=== PATIENT | female | born 1930 | race Caucasian/White ===

== ENCOUNTER 2016-11-20 22:42 | Inpatient (IN) | payer OTHER, BC ==
[~2016-11-20] VITALS: Ht 157.5 cm; Wt 105.8 kg
[~2016-11-20 22:42] MED LIST: ADVIL,NUPRIN,M200 MG PO; ALLOPURINOL100 MG PO; AMLODIPINE BESYL5 MG PO; ASPIRIN81 M1 PO; ASPIRIN81 M2 PO; ATENOLOL50 M1 PO; ATENOLOL50 MG PO; CALCIUM; CALCIUM 500 +1 EACH PO; CALCIUM 600 WI1 EAC2 PO; CALTRATE 6001 TABLE1 PO; CETIRIZINE HCL10 M1 PO; CETIRIZINE HCL10 M2 PO; Cipro PO; DAILY VITAMIN1 EAC8 PO; DIOVAN HCT 11 TABLE1 PO; ESTRACE42.5 GM VG; FIBER; FLAGYL500 MG PO; GLIMEPIRIDE1 MG PO; GLIPIZIDE XL10 MG PO; GLUCOPHAGE500 MG PO; KEFLEX500 MG PO; LASIX20 MG PO; LEVAQUIN500 MG PO; LEVOTHYROXINE75 MCG PO; LISINOPRIL40 MG PO; LISINOPRIL5 MG PO; LO-DOSE ASPIRIN81 M1 PO; LORAZEPAM0.5 MG PO; MEDROL DOSEPAK4 MG PO; MULTIVITAMIN1 EAC1 PO; MULTIVITAMIN1 EAC2 PO; NORVASC10 MG PO; PRAVACHOL20 MG PO; PRAVASTATIN SOD10 MG PO; PROAIR HFA8.5 GM IH; PULMICORT FLE180 MCG IH; SPIRONOLACTONE25 MG PO; SYNTHROID50 MCG PO; SYNTHROID75 MCG PO; TRIAMTERENE-HC1 EACH PO; VITAMIN D; ZOFRAN ODT4 MG PO; ZYRTEC10 M2 PO
[2016-11-20 23:03] LABS: ADD MIUA? YES; BILIRUBIN NEGATIVE; BLOOD TRACE; COLOR YELLOW ((YELLOW)); GLUCOSE (STRIP) NEGATIVE; KETONES NEGATIVE; LEUKOCYTES NEGATIVE; NITRITE NEGATIVE; PH, URINE 5.5 (5-8); PROTEIN (STRIP) 100; SPECIFIC GRAVITY 1.012 (1.000-1.030); UROBILINOGEN 0.2 MG/DL (0.2-1.0)
[2016-11-20 23:08] LABS: HEMATOCRIT 39.8 % (36.0-46.0); MCHC 33.7 G/DL (30.0-36.0); MCV 92.1 FL (83-99); MEAN PLAT.VOLUME 9.9 uM^3 (9.5-12.4); PLATELET COUNT 155 K/uL (156-360); RBC DIS.WIDTH-CV 13.8 % (11.8-14.6); RBC DIS.WIDTH-SD 45.4 % (39-53); RED BLOOD COUNT 4.32 M/uL (3.80-5.20); WHITE BLOOD COUNT 9.3 K/uL (4.1-10.2)
[2016-11-20 23:16] LABS: CHLORIDE 109 mEq/L (99-109)
[2016-11-20 23:17] LABS: POTASSIUM 3.9 mEq/L (3.7-5.4); SODIUM 139 mEq/L (136-147)
[2016-11-20 23:18] LABS: GLUCOSE 190 mg/dL (70-99)
[2016-11-20 23:20] LABS: ANION GAP 14 MEQ/L (2-14)
[2016-11-20 23:22] LABS: GFR ESTIMATE (CALCULATED) > 59 mL/min/
[2016-11-20 23:23] LABS: UREA NITROGEN (BUN) 23 mg/dL (9-23)
[2016-11-20 23:29] LABS: BACTERIA NONE SEEN; CASTS NONE SEEN /LPF; CRYSTALS NONE SEEN; EPITHELIAL CELLS RARE; MUCUS NONE SEEN; RED BLOOD CELLS NONE SEEN /HPF (0-5); UCUL ADDED? NO; WHITE BLOOD CELLS RARE /HPF (0-5)
[2016-11-20 23:29] LABS: TROP-I INTERPRETATION NEGATIVE; TROPONIN-I < 0.01 ng/mL (0.0-0.30)
[2016-11-21] MEDS ORDERED: PRINIVIL10 MG PO (01:26)
[2016-11-21] MEDS ORDERED: LYRICA75 MG PO (01:30)
[2016-11-21] MEDS ORDERED: EYE DROPS15 M2 BOTH EYES (01:32)
[2016-11-21] MEDS ORDERED: PROBIOTIC1 EAC7 PO (01:33)
[2016-11-21 05:35] VITALS: BP 170/76
[2016-11-21 07:23] VITALS: BP 186/84
[2016-11-21 07:43] LABS: HDL CHOLESTEROL 47 MG/DL (Desirable>=50); LDL CHOLESTEROL 60 mg/dL (Desirable<100); NON-HDL CHOLESTEROL 111 mg/dL (Desirable<160); TOTAL CHOLESTEROL 158 mg/dL (Desirable<200); TRIGLYCERIDES 253 MG/DL (Normal: <150)
[2016-11-21 11:17] VITALS: BP 188/71
[2016-11-21 14:53] VITALS: BP 143/63
[2016-11-21 19:58] VITALS: BP 145/73
[2016-11-22] VITALS: BP 147/73
[2016-11-22 03:48] VITALS: BP 150/80
[2016-11-22 06:07] LABS: POINT-OF-CARE METER ID UU14174225
[2016-11-22 06:51] LABS: Estimated Average Glucose 157 mg/dL (70-123); HEMOGLOBIN A1c (GLYCOHEMOGLOB) 7.1 % HGB (Below 5.7)
[2016-11-22 08:08] VITALS: BP 169/84
== END 2016-11-22 10:24 | disposition home or self-care (01) | DRG 149 ==
LOC: EME → EDBD 22:42 → EME 22:42 → EDOF 11-21 04:18 → 5SOUTH 11-21 04:18
PROVIDERS: Emergency Medicine; Internal Medicine
DX: R42 Dizziness and giddiness (principal); I16.0 Hypertensive urgency; E66.9 Obesity, unspecified; E03.9 Hypothyroidism, unspecified; G31.9 Degenerative disease of nervous system, unspecified; E11.9 Type 2 diabetes mellitus without complications; J32.9 Chronic sinusitis, unspecified
CPT/HCPCS: 70450; 70551; 80048; 80061; 81003; 82948; 83036; 84484; 85027; 93005; 94640; 94640 76; 99202; 99281; 99285; J1650; J1815; J2060